=== PATIENT | female | born 1965 | race Caucasian/White ===

== ENCOUNTER 2018-05-16 08:42 | Outpatient (CLI) | END 2018-05-16 08:43 | disposition home or self-care (01) ==

== ENCOUNTER 2018-05-16 08:46 | Outpatient (CLI) | payer OTHER ==
--- NOTE | 2018-05-24 14:19 | Mammography Report ---
Procedure Date: 05/16/2018 Accession Number: [id number] / [id number] Procedure: JOE - Screening Mammo Dig Bilat CPT Code: FULL RESULT: EXAM: Screening Mammo Dig Bilat DATE: 05/16/2018 9:37 AM CLINICAL HISTORY: 52-year-old for screening TECHNIQUE: Bilateral CC and MLO views were obtained. COMPARISON: The patient reports having had previous mammograms in [place], but the facility had no record of the patient. If records in your office indicate where the examinations were performed, we would be happy to try to obtain them for direct comparison. FINDINGS: The breasts demonstrate heterogeneously dense fibroglandular parenchyma bilaterally. In the left upper outer central breast, there is a possible obscured nodule. Further evaluation with spot compression views and possible ultrasound is recommended. No suspicious masses, clustered microcalcifications, or regions of architectural distortion are identified in the right breast. IMPRESSION: Incomplete examination RECOMMENDATION: Additional evaluation as above. BIRADS CATEGORY 0: Incomplete examination STANDARD QUALIFYING STATEMENTS: 1. This examination was reviewed with the aid of Computer-Aided Detection (CAD). 2. A negative or benign imaging report should not delay biopsy if clinically suspicious findings are present. Consider surgical consultation if warrented. More than 5% of cancers are not identified by imaging. 3. Dense breasts may obscure an underlying neoplasm.
== END 2018-05-16 08:47 | disposition home or self-care (01) ==
LOC: DI 08:46
PROVIDERS: ATTEND Physician Assistant
DX: Z12.31 Encounter for screening mammogram for malignant neoplasm of breast (principal); R92.8 Other abnormal and inconclusive findings on diagnostic imaging of breast
CPT/HCPCS: 77067

== ENCOUNTER 2019-07-01 17:11 | Outpatient (CLI) | payer OTHER ==
--- NOTE | 2019-07-02 08:20 | Ultrasound Report ---
Reason: MALIGNANT NEOPLASM OF URETERIC ORIFICE Procedure Date: 07/01/2019 Accession Number: [id number] / [id number] Procedure: US - Retroperitoneal CPT Code: FULL RESULT: EXAM: RENAL ULTRASOUND EXAM DATE: 07/01/2019 06:30 PM. CLINICAL HISTORY: MALIGNANT NEOPLASM OF URETERIC ORIFICE. COMPARISON: None. TECHNIQUE: Real-time scanning was performed with static images obtained. FINDINGS: Right Kidney: 10.2 x 4.3 x 5 cm. Unremarkable echogenicity. No hydronephrosis. No discrete mass. Color flow appears appropriate. Left Kidney: 10 x 6.4 x 5.5 cm. Unremarkable echogenicity. No hydronephrosis. Lobular appearing contour. No definite mass identified. Color flow appears appropriate. Bladder: Bilateral jets seen. The prevoid bladder volume was 401 cc. The postvoid bladder volume was 32 cc. Other: None. IMPRESSION: 1. No hydronephrosis identified on either side. 2. Lobular appearing left renal contour with no definite mass visualized. RADIA
== END 2019-07-01 17:12 | disposition home or self-care (01) ==
LOC: DI 17:11
PROVIDERS: ATTEND Urology
DX: C67.6 Malignant neoplasm of ureteric orifice (principal)
CPT/HCPCS: 76770

== ENCOUNTER 2019-11-12 17:27 | Outpatient (CLI) | payer OTHER ==
--- NOTE | 2019-11-15 09:06 | Ultrasound Report ---
Reason: HX OF BLADDER CANCER Procedure Date: 11/12/2019 Accession Number: [id number] / [id number] Procedure: US - Retroperitoneal CPT Code: Final Report FULL RESULT: EXAM: RENAL ULTRASOUND EXAM DATE: 11/12/2019 05:20 PM. CLINICAL HISTORY: History of bladder cancer. COMPARISON: RETROPERITONEAL 07/01/2019 5:53 PM. TECHNIQUE: Real-time scanning was performed with static images obtained. FINDINGS: Right Kidney: 11.7 x 3.6 x 5.3 cm. Normal echotexture with no stones, contour-deforming masses, or hydronephrosis. Left Kidney: 9.8 x 5.8 x 5 cm. Normal echotexture with no stones, contour-deforming masses, or hydronephrosis. Lobular contour. Suboptimal visualization due to bowel gas and positioning. Bladder: Bilateral jets seen. The prevoid bladder volume was 466 cc. The postvoid bladder volume was 14.8 cc. Other: None. IMPRESSION: 1. No renal mass, stone or hydronephrosis. Persistent stable lobular contour of the left kidney. No defined mass is noted. Definitive confirmation can be performed with contrast and CT or MRI as necessary. Alternatively, if the patient has had previous contrast enhanced studies, an addendum can be performed after review of images. 2. Normal bladder. RADIA
== END 2019-11-12 17:28 | disposition home or self-care (01) ==
LOC: DI 17:27
PROVIDERS: ATTEND Urology
DX: Z85.51 Personal history of malignant neoplasm of bladder (principal)
CPT/HCPCS: 76770

== ENCOUNTER 2019-11-14 12:32 | Outpatient (CLI) | payer OTHER ==
[2019-11-14 12:54] LABS: BILIRUBIN,URINE NEGATIVE (NEGATIVE); GLUCOSE, URINE (UA) NEGATIVE (NEGATIVE); KETONES,URINE (UA) NEGATIVE (NEGATIVE); LEUKOCYTE ESTERASE, URINE NEGATIVE (NEGATIVE); NITRITE,URINE NEGATIVE (NEGATIVE); OCCULT BLOOD,URINE NEGATIVE (NEGATIVE); PROTEIN,URINE NEGATIVE (NEGATIVE); UROBILINOGEN,URINE 0.2 (NORMAL) E.U./dL (NORMAL)
[2019-11-14 13:09] LABS: BACTERIA,URINE Rare /HPF (None Seen); CLARITY,URINE CLEAR (CLEAR); RBC,URINE 0-5 /HPF (0-5); SQUAMOUS EPITHELIAL CELL,UR RARE Squamous (<= Few)
== END 2019-11-14 12:33 | disposition home or self-care (01) ==
LOC: LAB 12:32
PROVIDERS: ATTEND Urology
DX: R10.9 Unspecified abdominal pain (principal)
CPT/HCPCS: 81001; 87086

== ENCOUNTER 2020-08-27 10:39 | Outpatient (CLI) | payer OTHER ==
--- NOTE | 2020-08-30 10:29 | Mammography Report ---
BILATERAL DIGITAL SCREENING MAMMOGRAM 3D/2D: 08/27/2020 CLINICAL: Family history of breast cancer. Routine screening. Comparison is made to exam dated: 05/16/2018 mammogram - [facility]. There are sca ttered fibroglandular elements in both breasts. No significant masses, calcifications, or other findings are seen in either breast. There has been no significant interval change. IMPRESSION: NEGATIVE There is no mammographic evidence of malignancy. A 1 year screening mammogram is recommended. This exam was interpreted at Station ID: [id number]. NOTE: For mammograms, a report in lay terms will be sent to the patient. Approximately 15% of breast malignancies will not be visualized mammographically. In the management of a palpable breast mass, a negative mammogram must not discourage biopsy of a clinically suspicious lesion. Electronically Signed By: Judd Johnson M.D., jr/sina:08/27/2020 17:01:12 ACR BI-RADS Category 1: Negative 3341F PARENCHYMAL PATTERN: (A) - The breast(s) demonstrate(s) scattered fibroglandular densities. BI-RADS CATEGORY: (1) - 1 RECOMMENDATION: (ANNUAL) - Recommend routine annual screening mammography. [id number] 1 year screening LATERALITY: (B)
== END 2020-08-27 10:40 | disposition home or self-care (01) ==
LOC: DI.N 10:39
DX: Z12.31 Encounter for screening mammogram for malignant neoplasm of breast (principal); Z80.3 Family history of malignant neoplasm of breast
CPT/HCPCS: 77063; 77067

== ENCOUNTER 2020-09-15 20:49 | Outpatient (CLI) | payer OTHER | END 2020-09-15 20:50 | disposition home or self-care (01) | LOC: COV 20:49 | PROVIDERS: ATTEND Family Medicine | DX: R05 Cough (principal); R06.02 Shortness of breath; R53.83 Other fatigue; J02.9 Acute pharyngitis, unspecified; R19.7 Diarrhea, unspecified; R09.81 Nasal congestion; Z20.828 Contact with and (suspected) exposure to other viral communicable diseases ==

== ENCOUNTER 2022-02-14 12:00 | Outpatient (CLI) | payer OTHER ==
--- NOTE | 2022-02-14 15:47 | XRAY Report ---
PROCEDURE: Lumbar Spine 2 View INDICATIONS: LOW BACK PAIN, HX OF LUMBAR FUSION OSTEOPENIA TECHNIQUE: 2 views of the lumbar spine were acquired. COMPARISON: None. FINDINGS: Bones: 5 [id number] vertebrae are present. There is mild grade 1 retrolisthesis of L1 on L2. M ild grade 1 anterolisthesis of L4 on L5. Posterior fusion hardware at L4-L5 is present. No vertebral body compression fractures. No suspicious bony lesions. Soft tissues: Overlying bowel gas pattern is normal. No suspicious soft tissue calcifications. IMPRESSION: Postsurgical sequelae. No acute fracture. No osseous lesion. If symptoms and/or clinical suspicion for pathology continue, further assessment with repeat plain films, or advanced imaging (e .g., CT, MRI, or bone scan) is recommended for further assessment. Reviewed by: Giovanni Rowan MD on 02/14/2022 3:46 PM PDT Approved by: Giovanni Rowan MD on 02/14/2022 3:46 PM PDT Station ID: [id number]
== END 2022-02-14 12:01 | disposition home or self-care (01) ==
LOC: DI 12:00
PROVIDERS: ATTEND Student in an Organized Health Care Education/Training Program
DX: M54.50 Low back pain, unspecified (principal); M43.16 Spondylolisthesis, lumbar region; Z98.1 Arthrodesis status